=== PATIENT | male | born 1970 | race Caucasian/White ===

== ENCOUNTER 2021-06-15 08:57 | Emergency (ER) | payer OTHER ==
[~2021-06-15] VITALS: Ht 167.6 cm; Wt 76.2 kg
[2021-06-15] MEDS ORDERED: PREDNISONE20 MG PO (10:12)
[2021-06-15] MEDS ORDERED: ACYCLOVIR200 MG PO (10:12)
== END 2021-06-15 10:18 | disposition home or self-care (01) ==
LOC: FSED 10:03
DX: G51.0 Bell's palsy (principal)
CPT/HCPCS: 70450; 99283